=== PATIENT | male | born 1980 | race Caucasian/White ===

== ENCOUNTER → 2021-05-09 | Outpatient (CLI) | payer OTHER ==
[2021-05-09 11:18] LABS: HEMATOCRIT 45 % (40-54); HEMOGLOBIN 15.3 g/dL (13.3-17.7); MEAN CORPUSCULAR HEMOGLOBIN 29 pg (25-34); MEAN CORPUSCULAR HGB CONC 34 g/dL (32-36); MEAN CORPUSCULAR VOLUME 85 fL (80-99); MEAN PLATELET VOLUME 9.1 fL (9.0-12.2); PLATELET COUNT 249 10^3/uL (130-400); WHITE BLOOD COUNT 5.8 10^3/uL (4.3-11.0)
[2021-05-09 11:30] LABS: ALBUMIN 4.5 GM/DL (3.2-4.5)
[2021-05-09 11:31] LABS: CALCIUM 9.4 MG/DL (8.5-10.1)
[2021-05-09 11:33] LABS: TOTAL PROTEIN 7.3 GM/DL (6.4-8.2)
[2021-05-09 11:34] LABS: BILIRUBIN,TOTAL 0.5 MG/DL (0.1-1.0)
[2021-05-09 11:36] LABS: CREATININE SERUM 1.23 MG/DL (0.60-1.30)
--- NOTE | 2021-05-09 11:49 | Diagnostic Imaging Report ---
EXAMINATION: US Right Lower Extremity Venous Duplex. TECHNIQUE: Multiple Real-time grayscale images were obtained over the right lower extremity in various projections. Additional spectral analysis and color Doppler duplex images were also obtained. HISTORY: Right lower extremity pain and swelling. COMPARISON: None available. FINDINGS: The right common femoral vein, deep femoral vein, superficial femoral vein, and popliteal vein are patent with normal grayscale and Doppler appearance. There is normal respiratory variation and augmentation. IMPRESSION: No DVT of the right lower extremity. Dictated by: Dictated on workstation # [id number]
--- NOTE | 2021-05-09 16:41 | Diagnostic Imaging Report ---
EXAMINATION: Radiographs of the sacrum and coccyx, 3 views. COMPARISON: None. HISTORY: 40-year-old male, sacrum and coccygeal pain. FINDINGS: The pubic symphysis and sacroiliac joints are normally aligned. There is no identified sacral or coccygeal fracture radiographically apparent. IMPRESSION: 1. No radiographically apparent fracture of the sacrum or coccyx. 2. Unremarkable appearance of the sacroiliac joints. Dictated by: Dictated on workstation # [id number]
--- NOTE | 2021-05-09 16:44 | Diagnostic Imaging Report ---
INDICATION: Back pain. EXAMINATION: Lumbosacral spine on 05/09/2021. TECHNIQUE: Five views of the spine including flexion and extension imaging. FINDINGS: On neutral imaging, there is normal height and alignment of the vertebral bodies. With flexion, there is minimal grade 1 anterolisthesis of L4 on L5 of approximately 2 mm. Normal alignment is seen with extension. The remaining levels demonstrate minimal grade 1 retrolisthesis of L1 on L2 with extension only. This measures approximately 3 mm. The remaining alignment is preserved. The vertebral body heights are maintained. The intervertebral disc spaces are preserved. The soft tissues are unremarkable. IMPRESSION: Minimal grade 1 anterolisthesis of L4 on L5 with flexion only. Grade 1 retrolisthesis at L1-L2 is seen with extension only. The remaining spine is unremarkable. Dictated by: Dictated on workstation # [id number]
== END ==
LOC: RAD 10:56
PROVIDERS: ATTEND Nurse Practitioner Family
DX: M43.16 Spondylolisthesis, lumbar region (principal); M79.89 Other specified soft tissue disorders
CPT/HCPCS: 36415; 72110; 72220; 80053; 85027; 85379

== ENCOUNTER → 2021-05-09 | Outpatient (CLI) | payer OTHER | LOC: RAD 14:59 | PROVIDERS: ATTEND Nurse Practitioner Family | DX: M79.604 Pain in right leg (principal); M54.50 Low back pain, unspecified; Z87.81 Personal history of (healed) traumatic fracture ==

== ENCOUNTER → 2022-03-21 | Outpatient (CLI) | payer OTHER ==
[2022-03-21 13:41] LABS: BASOPHILS # (AUTO) 0.1 10^3/uL (0.0-0.1); BASOPHILS % (AUTO) 1 % (0-10); EOSINOPHILS # (AUTO) 0.2 10^3/uL (0.0-0.3); EOSINOPHILS % (AUTO) 3 % (0-10); HEMATOCRIT 45 % (40-54); HEMOGLOBIN 15.5 g/dL (13.3-17.7); LYMPHOCYTES # (AUTO) 1.3 10^3/uL (1.0-4.0); LYMPHOCYTES % (AUTO) 19 % (12-44); MEAN CORPUSCULAR HEMOGLOBIN 29 pg (25-34); MEAN CORPUSCULAR HGB CONC 35 g/dL (32-36); MEAN CORPUSCULAR VOLUME 84 fL (80-99); MEAN PLATELET VOLUME 9.2 fL (9.0-12.2); MONOCYTES # (AUTO) 0.4 10^3/uL (0.0-1.0); MONOCYTES % (AUTO) 5 % (0-12); NEUTROPHILS % (AUTO) 72 % (42-75); PLATELET COUNT 268 10^3/uL (130-400); WHITE BLOOD COUNT 6.9 10^3/uL (4.3-11.0)
[2022-03-21 13:52] LABS: CHLORIDE 104 MMOL/L (98-107); POTASSIUM 3.9 MMOL/L (3.6-5.0); SODIUM 138 MMOL/L (135-145)
[2022-03-21 13:53] LABS: ALBUMIN 4.7 GM/DL (3.2-4.5)
[2022-03-21 13:54] LABS: CALCIUM 9.4 MG/DL (8.5-10.1); TRIGLYCERIDES 153 MG/DL (<150); VLDL CHOLESTEROL 31 MG/DL (5-40)
[2022-03-21 13:55] LABS: GLUCOSE 96 MG/DL (70-105); TOTAL PROTEIN 7.5 GM/DL (6.4-8.2)
[2022-03-21 13:56] LABS: CARBON DIOXIDE 24 MMOL/L (21-32)
[2022-03-21 13:59] LABS: ALKALINE PHOSPHATASE 54 U/L (40-136); GFR ESTIMATED 71
[2022-03-21 14:00] LABS: BUN/CREATININE RATIO 12; CHOLESTEROL 192 MG/DL (< 200)
[2022-03-21 14:01] LABS: HDL CHOLESTEROL 39 MG/DL (40-60)
[2022-03-21 14:02] LABS: ALANINE AMINOTRANSFERASE 25 U/L (0-55)
== END ==
LOC: LAB 13:16
PROVIDERS: ATTEND Nurse Practitioner Family
DX: Z00.00 Encounter for general adult medical examination without abnormal findings (principal)
CPT/HCPCS: 36415; 80053; 80061; 84443; 85025

== ENCOUNTER 2022-11-08 13:39 | Outpatient (CLI) | payer OTHER | END 2022-11-08 14:00 | LOC: SLEEP 13:39 | PROVIDERS: ATTEND Family Medicine | DX: R06.81 Apnea, not elsewhere classified (principal); R06.83 Snoring | CPT/HCPCS: G0399 ==